=== PATIENT | female | born 1975 | race Caucasian/White ===

== ENCOUNTER → 2021-08-28 | Outpatient (CLI) | payer OTHER ==
[~2021-08-28] MED LIST: HYDR12CA PO; LISI20TA33 PO; MM S100C PO; VITMTA PO
[2021-08-28 11:02] LABS: HEMATOCRIT 45.1 % (36.0-47.0); HEMOGLOBIN 14.6 g/dl (12.0-15.5); MEAN CORPUSCULAR HEMOGLOBIN 30.2 pg (27.0-33.0); MEAN CORPUSCULAR HGB CONC 32.4 g/dl (32.0-36.5); MEAN CORPUSCULAR VOLUME 93.2 fl (80.0-96.0); PLATELET COUNT, AUTOMATED 291 10^3/uL (150-450); RED BLOOD COUNT 4.84 10^6/uL (4.00-5.40); WHITE BLOOD COUNT 10.7 10^3/uL (4.0-10.0)
[2021-08-28 11:30] LABS: BLOOD UREA NITROGEN 13 MG/DL (7-18); CALCIUM LEVEL 8.8 MG/DL (8.5-10.1); CARBON DIOXIDE LEVEL 25 MEQ/L (21-32); CHLORIDE LEVEL 110 MEQ/L (98-107); CREATININE FOR GFR 0.75 MG/DL (0.55-1.30); GLOMERULAR FILTRATION RATE > 60.0 (>58); GLUCOSE, FASTING 87 MG/DL (70-100); POTASSIUM SERUM 4.2 MEQ/L (3.5-5.1); SODIUM LEVEL 140 MEQ/L (136-145)
--- NOTE | 2021-08-29 05:32 | ECGEPIP ---
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
== END ==
LOC: M LAB 10:16
PROVIDERS: ATTEND Podiatrist
DX: M21.6X2 Other acquired deformities of left foot (principal); D48.9 Neoplasm of uncertain behavior, unspecified; M79.672 Pain in left foot

== ENCOUNTER → 2021-09-04 | Outpatient (CLI) | payer OTHER | LOC: M LABSMTC 10:22 | PROVIDERS: ATTEND Anesthesiology | DX: Z01.818 Encounter for other preprocedural examination (principal); Z11.52 Encounter for screening for COVID-19 ==

== ENCOUNTER 2021-09-08 06:17 | Day surgery (SDC) | payer OTHER ==
[~2021-09-08] VITALS: Ht 157.5 cm; Wt 68.9 kg
[~2021-09-08 06:17] MED LIST changes: +LIDOCAINE 1% MDV 20ML VIAL SQ PRN; +LR 1,000 ML IV ONE; +ceFAZolin SOD 2 GM in IV 1 EA IV ONE
[2021-09-08] MEDS ORDERED: BUPIVACAINE HCL 0.5% 30 ML VIAL As Ordered ONE (07:12)
[2021-09-08] MEDS ORDERED: GENTAMICIN SULF 80MG/2ML VIAL As Ordered ONE (07:12)
[2021-09-08] MEDS ORDERED: LIDOCAINE 2% MDV 20ML VIAL As Ordered ONE (07:12)
[2021-09-08] MEDS ORDERED: dexameTHASONE 4 MG/ML 1ML VIAL (J1100 PER 1MG) As Ordered ONE ×2 (07:12→07:31)
[2021-09-08] MEDS ORDERED: fentaNYL 100 MCG/2 ML INJECTION (J3010) As Ordered ONE (07:31)
[2021-09-08] MEDS ORDERED: ONDANSETRON 4MG/2ML VIAL As Ordered ONE (07:31)
[2021-09-08] MEDS ORDERED: LIDOCAINE 2% 100MG/5ML SDV (FOR ANES.) As Ordered ONE (07:31)
[2021-09-08] MEDS ORDERED: propofoL 200 MG/20 ML VIAL As Ordered ONE (07:31)
[2021-09-08] MEDS ORDERED: KETOROLAC 60MG 2ML VIAL As Ordered ONE (07:31)
[2021-09-08] MEDS ORDERED: MIDAZOLAM INJ 2MG/2ML VIAL (J2250 PER 1MG) As Ordered ONE (07:31)
[2021-09-08] MEDS ORDERED: ACETAMINOPHEN 1000MG 100ML IV BTL (OFIRMEV) (J0131 PER 10MG) As Ordered ONE (07:40)
[2021-09-08] MEDS ORDERED: SEVOFLURANE INHAL SOLN 250 ML BTL As Ordered ONE (08:23)
--- NOTE | 2021-09-08 09:07 | REP ---
INDICATION: post op COMPARISON: None. TECHNIQUE: Portable AP, lateral, oblique views of the left foot FINDINGS: Postoperative changes with fixation at the head of the 3rd metatarsal bone. Remainder of the examination is essentially age-appropriate and within normal limits. IMPRESSION: Baseline postsurgical evaluation.. <Electronically signed by Elvis Whitney > 09/08/21 0918
[2021-09-08 10:00] VITALS: BP 138/76
--- NOTE | 2021-09-08 11:45 | RO ---
OPERATIVE NOTE DATE OF OPERATION: 09/08/2021 PREOPERATIVE DIAGNOSIS: Long 3rd metatarsal left foot. Intractable plantar keratosis submetatarsal 3 left foot. 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 Intractable plantar keratosis submetatarsal 3 left foot. PROCEDURE: 1. Shortening metatarsal osteotomy 3 metatarsal with screw fixation 2. punch biopsy plantar left foot SURGEON: Pato Moody DPM PIPE SETTER: None. ANESTHESIA: Local, MAC. IRRIGATION: Dilute Gentamicin solution. HEMOSTASIS: Ankle pneumatic tourniquet at 200 mmHg for 30 minutes. HARDWARE UTILIZED: Arthrex headed 2.4 x 12 mm cannulated screw. DESCRIPTION OF PROCEDURE: On 09/08/2021 this 45-year-old white female was taken from her hospital room to the operating room and placed on the operating table in the supine position. Following induction of IV sedation and local regional anesthesia the left lower extremity was prepped and draped in usual aseptic manner. Ankle pneumatic tourniquet was rapidly inflated and sterile draping was completed. The following procedure was performed: Shortening 3rd metatarsal osteotomy with internal screw fixation 2.4 x 12 mm x1 left foot. Attention was directed to the patient's left foot where on the plantar surface there was noted to be an intractable keratosis inferior to the 3rd metatarsal. We reviewed the x-rays, revealed relatively long 3rd metatarsal. At this time a 5 cm incision was placed on the dorsal aspect of the foot ending distal to the 3rd metatarsophalangeal joint. Skin incision was deepened through subcutaneous tissues. All crossing venous tributaries were electrocoagulated. Dissection was carried down to the conjoined tendons over the 3rd metatarsophalangeal joint. Medial to this a linear incision was placed and the extensor tendons were retracted in lateral direction. Linear capsulotomy was performed over the 3rd metatarsophalangeal joint. A dorsal medial and lateral capsulotomy was performed creating a capsuloperiosteal enveloped. Attention was directed to the 3rd metatarsophalangeal joint where Jluis osteotomy was performed, starting at the proximal aspect of the articular cartilage, paralleling the plantar surface of the foot, through the neck of the 3rd metatarsal. The bone was shortened approximately 5 mm and fixated with 2.4 x 12 mm Arthrex headed screw. The osteotomy was noted to be stable in all three cardinal planes. Intraoperative C-arm image revealed good reduction and position of the 3rd metatarsal. Utilizing bone cutting forceps the redundant dorsal spike was removed, rasped with handheld rasp, wound was flushed with copious amounts of Gentamicin solution. The capsular structures were coapted and maintained utilizing 2-0 Monocryl in simple interrupted type fashion, subcutaneous tissues were coapted and maintained utilizing 4-0 Monocryl in simple interrupted fashion and skin edges were coapted and maintained with 4-0 Prolene in simple interrupted type fashion. Attention was directed to the plantar surface of the foot where the following procedure was performed: Excisional biopsy through skin and subcutaneous tissue, submetatarsal 3 left foot. Attention was directed to the plantar surface of the foot. Utilizing 4 mm punch biopsy, biopsy was placed through the keratotic lesion. Excisional debridement was performed through the subcutaneous tissues and this keratotic plug was removed and sent to pathology for microscopic examination. The wound was packed with Gelfoam. Following completion of surgical procedure approximately 4 mg of dexamethasone sodium phosphate was instilled proximal to the surgical site. Attention was directed to bandaging. Sterile compression bandage was applied consisting of Adaptic, 4 x 4s, 4 x 4 splints, Kerlix and Coban. Ankle pneumatic tourniquet was rapidly deflated and spontaneous capillary filling noted to digits one through five of patient's left foot. The patient having apparently tolerated the surgical procedure well was taken from the OR to the recovery room for further monitoring by the anesthesia department. Postop instructions given upon discharge. OSEAS
== END 2021-09-08 10:00 | disposition home or self-care (01) ==
LOC: M SDC 06:17 → EDUNIT# 07:30 → M SDC 10:00
PROVIDERS: ATTEND Podiatrist
DX: L84 Corns and callosities (principal); M77.42 Metatarsalgia, left foot; M79.672 Pain in left foot; M21.6X2 Other acquired deformities of left foot; I10 Essential (primary) hypertension; J44.9 Chronic obstructive pulmonary disease, unspecified; Z79.899 Other long term (current) drug therapy; Z88.5 Allergy status to narcotic agent; F17.218 Nicotine dependence, cigarettes, with other nicotine-induced disorders
CPT/HCPCS: 28043; 28308; 73630; 76000; 81025; 88304; 97116; C1713; J0131; J0690; J1100; J1580; J1885; J2250; J2405; J3010